=== PATIENT | male | born 1985 | race Two or more races ===

== ENCOUNTER 2018-02-07 10:58 | Emergency (ER) | payer OTHER ==
[~2018-02-07] VITALS: Ht 180.3 cm; Wt 122.5 kg
== END 2018-02-07 11:51 | disposition home or self-care (01) ==
LOC: ER 10:58
DX: S92.402A Displaced unspecified fracture of left great toe, initial encounter for closed fracture (principal); W01.198A Fall on same level from slipping, tripping and stumbling with subsequent striking against other object, initial encounter
CPT/HCPCS: 73630; 99283

== ENCOUNTER 2018-02-11 15:59 | Emergency (ER) | payer OTHER ==
[~2018-02-11] VITALS: Ht 180.3 cm; Wt 122.5 kg
[2018-02-11] MEDS ORDERED: Bactrim Ds Tab1 EACH PO (16:25)
[2018-02-11] MEDS ORDERED: Keflex500 MG PO (16:25)
[2018-02-11] MEDS ORDERED: NIAC250ER (16:29)
== END 2018-02-11 16:31 | disposition home or self-care (01) ==
LOC: ER 15:59
DX: L02.416 Cutaneous abscess of left lower limb (principal)
CPT/HCPCS: 99283

== ENCOUNTER 2018-02-18 15:12 | Emergency (ER) | payer OTHER ==
[~2018-02-18] VITALS: Ht 180.3 cm; Wt 122.5 kg
[~2018-02-18 15:12] MED LIST: Bactrim Ds Tab1 EACH PO; Keflex500 MG PO; NIAC250ER
[2018-02-18] MEDS ORDERED: ERYT1OIN LEFTEYE (16:09)
== END 2018-02-18 16:13 | disposition home or self-care (01) ==
LOC: ER 15:12
DX: S05.02XA Injury of conjunctiva and corneal abrasion without foreign body, left eye, initial encounter (principal); X58.XXXA Exposure to other specified factors, initial encounter
CPT/HCPCS: 99282